=== PATIENT | female | born 1965 | race Caucasian/White ===

== ENCOUNTER → 2017-01-21 | Outpatient (CLI) | payer OTHER | LOC: RT 01-20 12:03 | DX: R55 Syncope and collapse (principal) ==

== ENCOUNTER → 2021-10-22 | Outpatient (CLI) | payer OTHER ==
[~2021-10-22] MED LIST: ADMELOG SO100 UNIT/1 SC; ALTACE2.5 MG PO; ASPIRIN CHEWABL81 MG PO; ATROVENT-HFA12.9 GM INH; BACTRIM DS TAB1 EACH PO; BACTROBAN OINT22 GM EXT; BASAGLAR SQ; CALCIUM600 MG PO; CARDIZEM 30MG T30 MG PO; DYAZIDE 37.5/251 EA PO; FEOSOL325 MG PO; HABITROL 21 MG P1 EA TOP; IMDUR ER TAB 3030 MG PO; KEFLEX500 MG PO; LEVAQUIN750 MG PO; LIORESAL TAB 1010 MG PO; LIPITOR TAB 2020 MG PO; LORTAB 5-325 M1 EACH PO; METOPROLOL TART25 MG PO; MUCINEX600 MG PO; NEURONTIN 400400 MG PO; NITROGLYCERIN0.4 MG SL; NOVOLOG100 UNIT/1 SQ; ONE DAILY COMP1 EACH PO; PAXIL40 MG PO; PERCOCET 5-3251 EACH PO; PHENERGAN 25 MG25 M1 PO; PREDNISONE20 MG PO; PROTONIX40 MG PO; REQUIP2 MG PO; SINGULAIR10 MG PO; SPIRIVA RESPIMAT4 GM INH; SPIRIVA18 MCG INH; SYMBICORT 160-1 INHA INH; TRESIBA FL100 UNIT/1 SQ; VENTOLIN HFA 66.7 GM INH; ZOVIRAX 800 MG800 MG PO; ZYRTEC10 MG PO; [UNRECOGNIZED DRUG - OTHER] PO
== END ==
LOC: KOH-I 14:51
DX: E11.9 Type 2 diabetes mellitus without complications (principal); E61.1 Iron deficiency; Z03.818 Encounter for observation for suspected exposure to other biological agents ruled out; M54.50 Low back pain, unspecified; D72.829 Elevated white blood cell count, unspecified; R91.8 Other nonspecific abnormal finding of lung field
CPT/HCPCS: 71046

== ENCOUNTER → 2022-03-22 | Outpatient (CLI) | payer OTHER | LOC: NM 09:30 | DX: E11.9 Type 2 diabetes mellitus without complications (principal); E61.1 Iron deficiency; M54.50 Low back pain, unspecified; D72.829 Elevated white blood cell count, unspecified; R79.89 Other specified abnormal findings of blood chemistry; Z76.89 Persons encountering health services in other specified circumstances | CPT/HCPCS: 78012; A9516 ==